=== PATIENT | male | born 1980 | race Caucasian/White ===

== ENCOUNTER → 2021-01-31 11:34 | Outpatient (CLI) | payer MEDICARE, SELFPAY ==
--- NOTE | ~2021-01-31 | XR_ITS ---
EXAMINATION: XR knee LT min 4V DATE: 01/31/2021 12:02 INDICATION: Left knee pain. TECHNIQUE: 4 views of left knee were obtained. COMPARISON: None. FINDINGS: Bone alignment is normal. No fracture. There is mild osteoarthritis of medial and patellofe moral compartments characterized by tiny marginal osteophytes. No knee joint effusion. IMPRESSION: 1. Mild left knee osteoarthritis. Reviewed, dictated and finalized at location A.
== END ==
PROVIDERS: Visit Provider Nurse Practitioner Adult Health
DX: M17.12 Unilateral primary osteoarthritis, left knee (principal)
CPT/HCPCS: 73564

== ENCOUNTER 2021-11-27 11:02 | Emergency (ER) | payer MEDICARE, MEDICAID, SELFPAY ==
[2021-11-27 11:10] VITALS: BP 135/81; PULSE 83; RESP 20; TEMP 37.1; O2SAT 99
--- NOTE | 2021-11-27 11:14 | ED.URI ---
HPI - URI/Sore Throat General Chief Complaint: Upper Respiratory Infection Stated Complaint: Sinus Congestion/Sore Throat Time Seen by Provider: 11/27/21 11:15 Source: patient and RN notes reviewed Mode of arrival: ambulatory Limitations: no limitations History of Present Illness HPI Narrative: 41-year-old male presents with concern for sinus pressure, pain, headache, nasal drainage, cough, decreased hearing in both ears. He reports he had a sinus infection for 3 weeks for which he was given amoxicillin by his primary care provider. He reports his symptoms improve but did not resolve and have now worsened. Reports he has been taking [id number] medications without relief MD elicited complaint: sore throat and nasal congestion Related Data Home Medications Medication Instructions Recorded Confirmed escitalopram oxalate [Lexapro] 10 mg PO DAILY 11/27/21 11/27/21 ibuprofen 800 mg PO TID 11/27/21 11/27/21 pravastatin 10 mg PO DAILY 11/27/21 11/27/21 Allergies Allergy/AdvReac Type Severity Reaction Status Date / Time morphine Allergy Swelling Verified 11/27/21 11:23 of Lip/Tongue/Throat Review of Systems Review of Systems: CONSTITUTIONAL: Reports malaise. Denies chills, sweats, or fever. EYES: Denies visual changes, redness, or discharge. ENT: Reports rhinorrhea, congestion, sinus pain, otalgia and sore throat. CARDIOVASCULAR: Denies chest pain, palpitations, or edema. RESPIRATORY: Reports cough. Denies dyspnea. GASTROINTESTINAL: Denies abdominal pain, nausea, vomiting, diarrhea SKIN: Denies rash or itching. MUSCULOSKELETAL: Denies myalgia. NEUROLOGIC: Denies headache. All systems reviewed & are unremarkable except as noted in HPI and below PMFSH Comments At time of signature, agree with nursing past medical, surgical, social and family history. There is no relevant family history pertinent to the presenting complaint Exam Narrative: GENERAL: Well-appearing, well-nourished, and in no acute distress. HEAD: Normocephalic EYES: PERRLA, conjunctivae clear ENT: Nares clear, turbinates edematous and erythematous, purulent discharge, sinus discharge. Mucous membranes moist. TM pearly powell with dull light reflex bilaterally; no tragal tenderness. Oropharynx not erythematous without lesions. Tonsils not enlarged and without exudate, no drooling, no hoarseness, no trismus, uvula midline. NECK: Supple. No lymphadenopathy CHEST: Clear to auscultation, breath sounds equal. No wheezing, rhonchi, rales, or stridor. No respiratory distress, speaks in full sentences. HEART: Regular rate and rhythm. No murmur heard. SKIN: Warm, dry, no rash. NEURO: Alert and oriented x3. PSYCH: Normal mood and affect Course Course Emergency Course: Patient is aware of diagnosis, understands and agrees to treatment plan. Anticipatory guidance given. Patient agrees to follow-up as directed and is aware of reasons to seek care at the emergency department. Portions of this record may have been created with voice recognition software Level of Care: Express Care Visit Vital Signs Vital signs: Reviewed. MDM - URI/Sore Throat MDM Narrative Medical decision making narrative: Differential diagnosis considered: Betancourt virus, strep pharyngitis, allergic rhinitis, upper respiratory tract infection, sinusitis, rhinosinusitis, nasopharyngitis. viral pharyngitis, otitis media, otitis externa, pneumonia, bronchitis, viral cough syndrome, viral syndrome, and influenza. Exam findings show no acute concerns or changes; patient is non-toxic appearing and is in no distress. Patient is appropriate for outpatient treatment and follow-up. Lab Data Attestation: I reviewed the patient's lab results. Critical Care Time Critical Care Time Critical Care Time: No Discharge Plan Discharge Clinical Impression: Acute bacterial sinusitis Patient Disposition: Home, Self-Care Condition: Stable Instructions: Antibiotic Form, Sinusitis (ED) Additional I
== END 2021-11-27 11:52 | disposition home or self-care (01) ==
PROVIDERS: Emergency Provider Nurse Practitioner; PCP Internal Medicine
DX: J01.90 Acute sinusitis, unspecified (principal); E78.00 Pure hypercholesterolemia, unspecified; F32.A Depression, unspecified
CPT/HCPCS: 99213; G0463

== ENCOUNTER 2023-09-29 09:45 | Emergency (ER) | payer MEDICARE, MEDICAID, SELFPAY ==
[2023-09-29 09:58] VITALS: BP 144/84; PULSE 91; RESP 16; TEMP 36.8; O2SAT 98
[2023-09-29 10:00] VITALS: BP 144/84; PULSE 91; RESP 16; TEMP 36.8; O2SAT 98
--- NOTE | 2023-09-29 10:44 | ED.URI ---
HPI - URI/Sore Throat General Chief Complaint: Upper Respiratory Infection Stated Complaint: Ear Pain/Shortness of Breath/Fatigue Source: patient, RN notes reviewed and old records reviewed Mode of arrival: ambulatory Limitations: no limitations History of Present Illness HPI Narrative: 43 year old male who presents to [facility] care with complaints of being on cruise to [place] and starting 4 days ago with symptoms which include ear pain bilaterally with itching coughing with expectoration of green mucus shortness of breath also having some sore throat and a feeling feverish with body aches. Patient reports he has been taking Tylenol and ibuprofen for his symptoms. Patient reports he did take a home COVID test yesterday which was negative MD elicited complaint: cough, sore throat and other (ear, chills and fevers, and body aches) Onset (ago): day(s) (4) Pain scale (0-10): 6 Able to tolerate fluids by mouth: Yes Treatments prior to arrival: acetaminophen and ibuprofen Related Data Home Medications Medication Instructions Recorded Confirmed escitalopram oxalate 10 mg tablet 10 mg PO DAILY 11/27/21 11/27/21 (Lexapro) ibuprofen 800 mg tablet 800 mg PO TID 11/27/21 11/27/21 atorvastatin 10 mg tablet mg 09/29/23 cyclobenzaprine 5 mg tablet mg 09/29/23 emtricitabine 200 mg-tenofovir tablet PO 09/29/23 alafenamide fumarate 25 mg tablet (Descovy) gabapentin 300 mg capsule mg 09/29/23 metformin 500 mg tablet mg 09/29/23 scopolamine base 1 mg over 3 days 09/29/23 transdermal patch tadalafil 20 mg tablet mg 09/29/23 tamsulosin 0.4 mg capsule mg PO 09/29/23 Allergies Allergy/AdvReac Type Severity Reaction Status Date / Time morphine Allergy Swelling Verified 11/27/21 11:23 of Lip/Tongue/Throat Review of Systems Review of Systems: CONSTITUTIONAL: Reports malaise, chills, sweats, or fever. EYES: Denies visual changes, redness, or discharge. ENT: Reports rhinorrhea, congestion, sinus pain, bilateral otalgia and sore throat. CARDIOVASCULAR: Denies chest pain, palpitations, or edema. RESPIRATORY: Reports cough.? Denies acute dyspnea. GASTROINTESTINAL: Denies abdominal pain, nausea, vomiting, diarrhea SKIN: Denies rash or itching. MUSCULOSKELETAL: Reports myalgia. NEUROLOGIC: Denies headache. All systems reviewed & are unremarkable except as noted in HPI and below PMFSH Past Medical History Medical History (Updated 09/30/23 @ 17:25 by Haleigh Quijano NP) Depression Diabetes Hyperlipidemia Social History Social History (Updated 09/30/23 @ 17:26 by Haleigh Quijano NP) Tobacco type: e-cigarettes/vaping Gender identity (if verbalized by the patient): Male Comments At time of signature, agree with nursing past medical, surgical, social and family history. There is no relevant family history pertinent to the presenting complaint Exam Narrative: GENERAL: Well-appearing, well-nourished, and in no acute distress. HEAD: Normocephalic EYES: PERRLA, conjunctivae clear ENT: Nares clear, turbinates edematous and erythematous, clear discharge. Mucous membranes moist Left TM red Right TM pearly powell with dull light reflex bilaterally; no tragal tenderness. Oropharynx erythematous without lesions. Tonsils not enlarged and without exudate, no drooling, no hoarseness, no trismus, uvula midline. post nasal drainage,post nasal drainage NECK: Supple. No lymphadenopathy CHEST: Clear to auscultation, breath sounds equal. No wheezing, rhonchi, rales, or stridor. No respiratory distress, speaks in full sentences.cough with green phlegm expectorated, SAO2 98% on room air HEART: Regular rate and rhythm. No murmur heard. SKIN: Warm, dry, no rash. NEURO: Alert and oriented x3. PSYCH: Normal mood and affect Course Course Emergency Course: Patient is aware of diagnosis, understands and agrees to treatment plan.? Anticipatory guidance given.? Patient agrees to follow-
== END 2023-09-29 11:35 | disposition home or self-care (01) ==
PROVIDERS: Emergency Provider Registered Nurse
DX: J10.1 Influenza due to other identified influenza virus with other respiratory manifestations (principal); H66.92 Otitis media, unspecified, left ear; E11.9 Type 2 diabetes mellitus without complications; E78.5 Hyperlipidemia, unspecified; F32.A Depression, unspecified
CPT/HCPCS: 87081; 87804; 87880; 99213; G0463

== ENCOUNTER 2024-03-31 17:53 | Emergency (ER) | payer MEDICARE, MEDICAID, SELFPAY ==
[2024-03-31 18:00] VITALS: BP 148/80; PULSE 90; RESP 20; TEMP 36.8; O2SAT 99
--- NOTE | 2024-03-31 18:30 | ED.SKABFB ---
HPI - Skin/Abscess/Foreign Bdy General Chief complaint: Skin/Abscess/Foreign Body Stated complaint: poison matheus all over Time Seen by Provider: 03/31/24 18:30 Source: patient, RN notes reviewed and old records reviewed Mode of arrival: ambulatory Limitations: no limitations History of Present Illness HPI narrative: 43 year old male presents to [facility] care with complaints of poison matheus rash for the past 4 days after doing yard work.Patient reports that he has poison matheus to his eyelid, bilateral arms,and genital area for the past 4 days. Patient reports that he has been using Calamine lotion, Benadryl cream, Cortisone 10, oral Benadryl and also some Domeboro powder for the itching.Patient reports that rash is very irritating and itchy. MD complaint: rash Onset (ago): day(s) (4) Location: face (eye lids, genitals and arms) Severity scale (1-10): 8 Quality: pruritic and other (irritating) Exacerbating factors: movement Treatments prior to arrival: OTC topical medication, Benadryl and other (cortisone 10, Domeboro powder) Related Data Home Medications Medication Instructions Recorded Confirmed atorvastatin 10 mg tablet 10 mg PO DAILY 09/29/23 03/31/24 cyclobenzaprine 5 mg tablet 5 mg PO DAILY PRN MUSCLE SPASMS 09/29/23 03/31/24 emtricitabine 200 mg-tenofovir 1 tablet PO DAILY 09/29/23 03/31/24 alafenamide fumarate 25 mg tablet (Descovy) gabapentin 300 mg capsule 300 mg PO QPM 09/29/23 03/31/24 metformin 500 mg tablet 500 mg PO DAILY 09/29/23 03/31/24 tamsulosin 0.4 mg capsule 0.4 mg PO DAILY 09/29/23 03/31/24 ibuprofen 800 mg tablet 800 mg PO TID PRN Pain (Scale 03/31/24 03/31/24 Score 4-6) testosterone cypionate 200 mg/mL 200 mg IM [id number] 03/31/24 03/31/24 intramuscular oil Allergies Allergy/AdvReac Type Severity Reaction Status Date / Time morphine Allergy Severe Swelling Verified 03/31/24 18:12 of Lip/Tongue/Throat Review of Systems Review of Systems: CONSTITUTIONAL: Denies fever, chills, or sweats. CARDIOVASCULAR: Denies chest pain, palpitations, or edema. RESPIRATORY: Denies cough or dyspnea. SKIN: Reports rash to eyelids, bilateral arms and genital area irritating and itchy MUSCULOSKELETAL: Denies joint pain or myalgia. NEUROLOGIC: Denies headache, numbness, or weakness. All systems reviewed & are unremarkable except as noted in HPI and below PMFSH Past Medical History Medical History Chronic back pain Depression Diabetes Hyperlipidemia Neuropathy Social History Social History Tobacco type: e-cigarettes/vaping Gender identity (if verbalized by the patient): Male Comments At time of signature, agree with nursing past medical, surgical, social and family history. There is no relevant family history pertinent to the presenting complaint Exam Narrative: GENERAL: Well-appearing, well-nourished, and in no acute distress. HEAD: Normocephalic, atraumatic. EYES: PERRLA, conjunctivae clear, and EOMI. ENT: Mucous membranes moist. Oropharynx without edema, erythema or lesions. NECK: Supple. No lymphadenopathy CHEST: Clear to auscultation. No respiratory distress.SAO2 99% on room air HEART: Regular rate and rhythm. SKIN: Warm, dry.? Patches of red raised rash with some vesicles noted rash is itchy and irritating noted on arms and eyelids reported also to genital area. NEURO:? Alert and oriented x3. PSYCH: Normal mood and affect Course Course Emergency Course: Patient is aware of diagnosis, understands and agrees to treatment plan.? Anticipatory guidance given.? Patient agrees to follow-up as directed and is aware of reasons to seek care at the emergency department. Portions of this record may have been created with voice recognition software Level of Care: Express Care Visit Vital Signs Vital signs: Vital Signs Temperature 36.8 C 03/31/24 1
== END 2024-03-31 18:50 | disposition home or self-care (01) ==
PROVIDERS: Emergency Provider Registered Nurse
DX: L23.7 Allergic contact dermatitis due to plants, except food (principal); F17.290 Nicotine dependence, other tobacco product, uncomplicated; E78.5 Hyperlipidemia, unspecified; E11.40 Type 2 diabetes mellitus with diabetic neuropathy, unspecified; Z79.84 Long term (current) use of oral hypoglycemic drugs
CPT/HCPCS: 99213; G0463

== ENCOUNTER 2024-06-11 13:07 | Emergency (ER) | payer MEDICARE, MEDICAID, SELFPAY ==
[2024-06-11 13:19] VITALS: BP 145/70; PULSE 96; RESP 16; TEMP 36.6; O2SAT 98
--- NOTE | 2024-06-11 19:49 | ED.GENADULT ---
HPI - General Adult General Chief complaint: Skin/Abscess/Foreign Body Stated complaint: Gland Swollen/Right Side Of Face Source: patient, RN notes reviewed and old records reviewed Mode of arrival: ambulatory Limitations: no limitations History of Present Illness HPI narrative: 43-year-old male to Express Care with complaint of swelling to right neck for 4 days. Patient reports extreme tenderness with palpation. Patient has attempted to treat at home with ice, heat, Tylenol, ibuprofen. Patient denies recent illness, sore throat, fever, dental pain. Patient hypertensive in triage. Patient resting comfortably in exam room in no acute distress. Patient able tolerate fluids by mouth. Related Data Home Medications Medication Instructions Recorded Confirmed atorvastatin 10 mg tablet 10 mg PO DAILY 09/29/23 03/31/24 cyclobenzaprine 5 mg tablet 5 mg PO DAILY PRN MUSCLE SPASMS 09/29/23 03/31/24 emtricitabine 200 mg-tenofovir 1 tablet PO DAILY 09/29/23 03/31/24 alafenamide fumarate 25 mg tablet (Descovy) gabapentin 300 mg capsule 300 mg PO QPM 09/29/23 03/31/24 metformin 500 mg tablet 500 mg PO DAILY 09/29/23 03/31/24 tamsulosin 0.4 mg capsule 0.4 mg PO DAILY 09/29/23 03/31/24 ibuprofen 800 mg tablet 800 mg PO TID PRN Pain (Scale 03/31/24 03/31/24 Score 4-6) testosterone cypionate 200 mg/mL 200 mg IM [id number] 03/31/24 03/31/24 intramuscular oil Allergies Allergy/AdvReac Type Severity Reaction Status Date / Time morphine Allergy Severe Swelling Verified 03/31/24 18:12 of Lip/Tongue/Throat Review of Systems Review of Systems: All systems reviewed & are unremarkable except as noted in HPI and below Constitutional: Constitutional: Reports no additional constitutional complaints Eyes: Eyes: Reports no additional eye complaints ENT: Reports system reviewed and no additional complaints, except as documented Cardiovascular: Cardiovascular: Reports no additional cardiovascular complaints, Denies chest pain and Denies dyspnea Respiratory: Respiratory: Reports no additional respiratory complaints, Denies cough and Denies dyspnea Musculoskeletal: Musculoskeletal: Reports no additional musculoskeletal complaints Neurologic: Reports system reviewed and no additional complaints, except as documented Psychiatric: Psychiatric: Reports no additional psychiatric complaints PMFSH Past Medical History Medical History Chronic back pain Depression Diabetes Hyperlipidemia Neuropathy Social History Social History Tobacco type: e-cigarettes/vaping Gender identity (if verbalized by the patient): Male Comments At the time of my signature, I reviewed and agree with the nursing past medical, surgical, social, and family history. There is no relevant family history pertinent to the patient complaint. Exam Const: General: cooperative, healthy appearing, comfortable, no acute distress, alert and well nourished Nutritional Appearance: well nourished Orientation/consciousness: patient oriented x3 Limitations: no limitations HENMT: Head: normal to inspection Ears: external ears normal Face/Nose/Sinus: Normal external nose present, Normal nares present, normal facial exam, No erythema and No edema Face and sinus: normal facial exam, no erythema and no edema Mouth: Yes Normal oral and palatal mucosa present Eyes: General: appearance normal, both eyes and all related structures Neck: Neck: normal visual inspection, full ROM and no meningeal signs Lymphatic: no lymphadenopathy noted and no lymphedema noted Chest: Chest palpation & inspection: normal inspection of the chest Resp: Effort & Inspection: normal respiratory effort and able to speak in complete sentences Auscultation: clear to auscultation bilaterally Cardio: Jugular venous distension: no JVD Rate: regular rate Rhythm: regular rhythm Back
== END 2024-06-11 13:58 | disposition short-term general hospital (02) ==
PROVIDERS: Emergency Provider Nurse Practitioner Family
DX: R59.0 Localized enlarged lymph nodes (principal); E78.2 Mixed hyperlipidemia; E11.40 Type 2 diabetes mellitus with diabetic neuropathy, unspecified; Z79.84 Long term (current) use of oral hypoglycemic drugs
CPT/HCPCS: 99212; G0463